=== PATIENT | male | born 1960 | race Caucasian/White ===

== ENCOUNTER 2017-10-15 01:59 | Emergency (ER) | payer MEDICAID | END 2017-10-15 02:53 | disposition home or self-care (01) | LOC: D.ER 01:59 | DX: T15.02XA Foreign body in cornea, left eye, initial encounter (principal); X58.XXXA Exposure to other specified factors, initial encounter; Y93.89 Activity, other specified; Y92.89 Other specified places as the place of occurrence of the external cause; S05.02XA Injury of conjunctiva and corneal abrasion without foreign body, left eye, initial encounter; F17.200 Nicotine dependence, unspecified, uncomplicated ==

== ENCOUNTER 2018-02-08 06:12 | Emergency (ER) | payer MEDICAID ==
[~2018-02-08] VITALS: Ht 177.8 cm; Wt 113.4 kg
[2018-02-08 06:18] VITALS: Ht 177.8 cm; Wt 113.4 kg
[2018-02-08] MEDS ORDERED: REXULTI1 MG PO (06:20)
[2018-02-08] MEDS ORDERED: BUPROPION HCL100 MG PO (06:20)
[2018-02-08] MEDS ORDERED: NORCO 7.5/325 T1 TA1 PO (06:57)
[2018-02-08 07:28] VITALS: BP 137/85
== END 2018-02-08 07:29 | disposition home or self-care (01) ==
LOC: D.ER 06:12
DX: M51.37 Other intervertebral disc degeneration, lumbosacral region (principal); F17.200 Nicotine dependence, unspecified, uncomplicated

== ENCOUNTER 2018-03-06 23:07 | Emergency (ER) | payer MEDICAID ==
[~2018-03-06] VITALS: Ht 177.8 cm; Wt 113.4 kg
[~2018-03-06 23:07] MED LIST: BUPROPION HCL100 MG PO; NORCO 7.5/325 T1 TA1 PO; REXULTI1 MG PO
[2018-03-06 23:13] VITALS: Ht 177.8 cm; Wt 113.4 kg
[2018-03-06] MEDS ORDERED: CYCLOBENZAPRINE10 MG PO (23:17)
[2018-03-06] MEDS ORDERED: NEURONTIN 300300 MG PO (23:17)
[2018-03-07 01:47] LABS: BASOPHILS 0.2 % (0-2); EOSINOPHILS 3.5 % (0-7); HEMATOCRIT 36.1 % (42.0-54.0); HEMOGLOBIN 11.8 g/dL (13.5-17.5); IMMATURE GRANULOCYTES 0.8 % (0-5); LYMPHOCYTES 17.6 % (15-50); MCH 28.7 pg (26.0-34.0); MCHC 32.7 g/dL (31.0-37.0); MCV 87.8 fL (80.0-100.0); NEUTROPHILS 67.9 % (40-80); RBC 4.11 10x6/uL (4.20-6.10); RDW 13.3 % (11.5-14.5); WBC 6.4 10x3/uL (4.8-10.8)
[2018-03-07 01:51] LABS: PLATELET COUNT 199 10x3/uL (130-400)
[2018-03-07] MEDS ORDERED: ROBAXIN-750750 MG PO (02:01)
[2018-03-07 02:27] VITALS: BP 132/85
== END 2018-03-07 02:28 | disposition home or self-care (01) ==
LOC: D.ER 23:07
PROVIDERS: Family Medicine
DX: M54.12 Radiculopathy, cervical region (principal); S80.862A Insect bite (nonvenomous), left lower leg, initial encounter; S80.861A Insect bite (nonvenomous), right lower leg, initial encounter; W57.XXXA Bitten or stung by nonvenomous insect and other nonvenomous arthropods, initial encounter; Y93.89 Activity, other specified; Y92.019 Unspecified place in single-family (private) house as the place of occurrence of the external cause; F17.200 Nicotine dependence, unspecified, uncomplicated

== ENCOUNTER 2018-03-15 01:22 | Emergency (ER) | payer MEDICAID ==
[~2018-03-15] VITALS: Ht 177.8 cm; Wt 113.4 kg
[~2018-03-15 01:22] MED LIST changes: +CYCLOBENZAPRINE10 MG PO; +NEURONTIN 300300 MG PO; +ROBAXIN-750750 MG PO
[2018-03-15 01:41] VITALS: Ht 177.8 cm; Wt 113.4 kg
[2018-03-15] MEDS ORDERED: TORADOL10 MG PO (02:47)
[2018-03-15 03:19] VITALS: BP 130/82
== END 2018-03-15 03:20 | disposition home or self-care (01) ==
LOC: D.ER 01:22
DX: M54.12 Radiculopathy, cervical region (principal); S46.001A Unspecified injury of muscle(s) and tendon(s) of the rotator cuff of right shoulder, initial encounter; X58.XXXA Exposure to other specified factors, initial encounter; Y93.89 Activity, other specified; Y92.89 Other specified places as the place of occurrence of the external cause; F17.200 Nicotine dependence, unspecified, uncomplicated

== ENCOUNTER 2018-03-21 12:35 | Emergency (ER) | payer MEDICAID ==
[~2018-03-21] VITALS: Ht 177.8 cm; Wt 113.6 kg
[~2018-03-21 12:35] MED LIST changes: +TORADOL10 MG PO
[2018-03-21 12:43] VITALS: Ht 177.8 cm; Wt 113.6 kg
[2018-03-21 16:50] LABS: BASOPHILS 0.2 % (0-2); EOSINOPHILS 0.8 % (0-7); HEMATOCRIT 37.8 % (42.0-54.0); HEMOGLOBIN 12.4 g/dL (13.5-17.5); IMMATURE GRANULOCYTES 2.8 % (0-5); LYMPHOCYTES 12.8 % (15-50); MCH 28.1 pg (26.0-34.0); MCHC 32.8 g/dL (31.0-37.0); MCV 85.5 fL (80.0-100.0); MEAN PLATELET VOLUME 8.4 fL (7.4-10.4); MONOCYTES 8.8 % (2-11); NEUTROPHILS 74.6 % (40-80); PLATELET COUNT 285 10x3/uL (130-400); RBC 4.42 10x6/uL (4.20-6.10); RDW 14.3 % (11.5-14.5); WBC 17.3 10x3/uL (4.8-10.8)
[2018-03-21 17:23] LABS: ALBUMIN 2.6 g/dL (3.4-5.0); ALKALINE PHOSPHATASE 131 U/L (46-116); ALT (SGPT) 63 U/L (10-68); BILIRUBIN - TOTAL 0.39 mg/dL (0.2-1.3); C-REACTIVE PROTEIN 11.9 mg/dL (0.0-0.9); CALC OSMOLALITY 269 mosm/kg (275-300); CALCIUM 8.1 mg/dL (8.5-10.1); CHLORIDE - SERUM 100 mmol/L (98-107); CREATININE - SERUM 0.8 mg/dL (0.6-1.3); GLUCOSE 112 mg/dL (74-106); POTASSIUM - SERUM 3.9 mmol/L (3.5-5.1); SODIUM 135 mmol/L (136-145); UREA NITROGEN 11 mg/dL (7-18); eGFR NON AFRICAN AMERICAN > 90 mL/min (90-120)
[2018-03-21] MEDS ORDERED: ULTRAM50 MG PO (19:16)
[2018-03-21] MEDS ORDERED: CYCLOBENZAPRINE10 MG PO (19:16)
[2018-03-21 20:12] VITALS: BP 133/80
== END 2018-03-21 20:13 | disposition home or self-care (01) ==
LOC: D.ER 12:35
PROVIDERS: Emergency Medicine
DX: M54.6 Pain in thoracic spine (principal); D72.829 Elevated white blood cell count, unspecified; T14.8XXA Other injury of unspecified body region, initial encounter; X58.XXXA Exposure to other specified factors, initial encounter; Y93.89 Activity, other specified; Y92.89 Other specified places as the place of occurrence of the external cause; M25.511 Pain in right shoulder; F17.200 Nicotine dependence, unspecified, uncomplicated; M54.2 Cervicalgia

== ENCOUNTER 2018-07-05 00:42 | Inpatient (IN) | payer MEDICAID ==
[~2018-07-05] VITALS: Ht 177.8 cm; Wt 113.6 kg
[~2018-07-05 00:42] MED LIST changes: +ULTRAM50 MG PO
[2018-07-05 01:24] LABS: APPEARANCE CLEAR (CLEAR); BILIRUBIN NEGATIVE (NEGATIVE); COLOR YELLOW (YELLOW); GLUCOSE NEGATIVE (NEGATIVE); KETONE NEGATIVE (NEGATIVE); NITRITE NEGATIVE (NEGATIVE); PROTEIN NEGATIVE (NEGATIVE); UROBILINOGEN NORMAL (NORMAL)
[2018-07-05 01:25] LABS: BACTERIA NONE SEEN /hpf (NONE SEEN); EPITHELIAL CELLS 0-5 /hpf (0-5); RED CELLS - URINE 0-5 /hpf (0-5); WHITE CELLS - URINE 0-5 /hpf (0-5)
[2018-07-05 01:45] LABS: BASOPHILS 0.2 % (0-2); EOSINOPHILS 3.1 % (0-7); HEMATOCRIT 38.1 % (42.0-54.0); HEMOGLOBIN 12.3 g/dL (13.5-17.5); IMMATURE GRANULOCYTES 2.3 % (0-5); LYMPHOCYTES 13.3 % (15-50); MCH 26.5 pg (26.0-34.0); MCHC 32.3 g/dL (31.0-37.0); MCV 81.9 fL (80.0-100.0); MEAN PLATELET VOLUME 8.8 fL (7.4-10.4); NEUTROPHILS 73.1 % (40-80); PLATELET COUNT 262 10x3/uL (130-400); RBC 4.65 10x6/uL (4.20-6.10); RDW 17.5 % (11.5-14.5); WBC 12.1 10x3/uL (4.8-10.8)
[2018-07-05 01:56] LABS: ALBUMIN 2.4 g/dL (3.4-5.0); ALKALINE PHOSPHATASE 146 U/L (46-116); ALT (SGPT) 123 U/L (10-68); BILIRUBIN - TOTAL 0.26 mg/dL (0.2-1.3); CALC OSMOLALITY 280 mosm/kg (275-300); CALCIUM 8.6 mg/dL (8.5-10.1); CARBON DIOXIDE 28.7 mmol/L (21.0-32.0); CHLORIDE - SERUM 102 mmol/L (98-107); CREATININE - SERUM 0.9 mg/dL (0.6-1.3); GLUCOSE 142 mg/dL (74-106); POTASSIUM - SERUM 4.1 mmol/L (3.5-5.1); PROTEIN - SERUM 7.6 g/dL (6.4-8.2); SODIUM 139 mmol/L (136-145); UREA NITROGEN 16 mg/dL (7-18); eGFR NON AFRICAN AMERICAN > 90 mL/min (90-120)
[2018-07-05 03:08] VITALS: BP 135/73
[2018-07-05 04:00] VITALS: BP 142/81
[2018-07-05 05:00] VITALS: BP 137/73
[2018-07-05 06:20] VITALS: BP 152/56
[2018-07-05 12:45] VITALS: Ht 177.8 cm; Wt 113.6 kg
[2018-07-05 19:08] VITALS: BP 131/78
[2018-07-06 07:32] LABS: HCG-QUANTITATIVE(TUMOR MARKER) <1 mIU/mL (0-3)
[2018-07-06 10:20] LABS: ALPHA FETOPROTEIN -(TUMOR MRK) 2.3 ng/mL (0.0-8.3)
== END 2018-07-05 18:16 | DRG 551 ==
LOC: D.ER 00:42 → D.EDHOLD 03:39
PROVIDERS: Family Medicine; Internal Medicine Nephrology; Urology
DX: M46.56 Other infective spondylopathies, lumbar region (principal); K68.19 Other retroperitoneal abscess; F17.203 Nicotine dependence unspecified, with withdrawal; N50.9 Disorder of male genital organs, unspecified; I10 Essential (primary) hypertension; J44.9 Chronic obstructive pulmonary disease, unspecified; B19.20 Unspecified viral hepatitis C without hepatic coma